=== PATIENT | male | born 1950 | race Caucasian/White ===

== ENCOUNTER → 2019-03-28 | Outpatient (CLI) | payer MEDICARE ==
[~2019-03-28] MED LIST: ASA325 PO; METOPROLOL TART25 MG PO; NRC7.5T PO; REGADENOSON 0.4 MG/5 ML SYR IV ONE
--- NOTE | 2019-03-28 17:10 | Myoview Stress Test ---
DATE OF STUDY: 03/28/2019 10:22:00 Stress Test - Treadmill ONLY PROCEDURE PERFORMED: Lexiscan Myoview stress test. INDICATION: Shortness of breath. TECHNIQUE: The patient was given 11 mCi of Myoview. Resting images were obtained in the horizontal long axis and vertical long axis and short axis. The patient was then hooked up to the EKG machine and Lexiscan infusion was given over 15 seconds. Immediately after Lexiscan infusion, the patient was given 32 mCi of Myoview. Stress images were obtained in the horizontal long axis, vertical long axis, and short axis about 30 minutes after completion of the Lexiscan infusion. Results were as follows: 1. The baseline EKG demonstrated normal sinus rhythm with some left ventricular hypertrophy. 2. There were no EKG changes and no symptoms during Lexiscan infusion. 3. There was normal perfusion to all segments of the myocardium in both stress and rest. 4. The left ventricle appeared to be dilated and there was an ejection fraction of 29%. There was [id number] global left ventricular dysfunction. IMPRESSION: No evidence of ischemia. No evidence of fixed defect. There was an enlarged ventricle with an ejection fraction of 29%. MD LAYTON Weldon/MODL /[id number]
== END ==
LOC: NM 10:06
DX: R94.31 Abnormal electrocardiogram [ECG] [EKG] (principal)
CPT/HCPCS: 78452; 93017; A9502; J2785